=== PATIENT | male | born 1995 | race Caucasian/White ===

== ENCOUNTER 2016-05-21 14:37 | Emergency (ER) | payer MEDICAID ==
[2016-05-21 14:52] VITALS: BP 118/58; PULSE 45; RESP 16; TEMP 98.5; O2SAT 95
--- NOTE | 2016-05-21 15:03 | UCPHY ---
H & P Patient Type: Established Chief Complaint Nursing Narrative: Laceration L 4th finger from broken glass pipe yesterday. Time Seen by Provider: 05/21/16 15:00 - Personal History Current Tetanus Diphtheria and Acellular Pertussis (TDAP): Yes Tetanus Vaccine Date: within 10 years - Medical/Surgical History Hx Asthma: No Hx Chronic Respiratory Disease: No Hx Diabetes: No Hx Cardiac Disease: No Hx Renal Disease: No Hx Cirrhosis: No Hx Alcoholism: No Hx HIV/AIDS: No Hx Splenectomy or Spleen Trauma: No Other PMH: ADD/ADHD, smokes marijuana, anxiety, depression, anxiety, insomnia - Family History Significant Family History: No pertinent family hx - Social History Smoking Status: Light smoker Constitutional: Initial Vital Signs Temperature (C) 36.9 C 05/21/16 14:48 Heart Rate 45 L 05/21/16 14:48 Respiratory Rate 16 05/21/16 14:48 Blood Pressure 118/58 L 05/21/16 14:48 O2 Sat (%) 95 05/21/16 14:48 O2 Delivery Mode Room Air Allergies/Adverse Reactions: No Known Allergies Allergy (Verified 05/21/16 14:48) Home Medications: Medication Instructions Recorded NK [No Known Home Meds] 12/31/15 Medical Decision Making ED Course/Re-evaluation: CHIEF COMPLAINT: Left 4th finger laceration. HISTORY OF PRESENT ILLNESS: The patient is a 20-year-old male who presents after lacerating his left 4th finger on a glass marijuana pipe 24 hours ago. He denies numbness, weakness. He has full range of motion in the finger. The pain does not radiate. No fever or redness. REVIEW OF SYSTEMS: A 10 point review of systems was performed and is negative with the exception of the elements mentioned in the history of present illness. PHYSICAL EXAM: HR, BP, O2 Sat, RR. Temp noted General Appearance: Alert, well hydrated, appropriate, and non-toxic appearing. Head: Atraumatic without scalp tenderness or obvious injury Eyes: Pupils equal, round, reactive to light and accommodation, EOMI, no trauma , no injection. Ears: Clear bilaterally, no perforation, normal landmarks Nose: Atraumatic, no rhinorrhea, clear. Throat: There is no erythema or exudates, no lesions, normal tonsils, mucus membranes moist. Neck: Supple, 2+ carotid upstroke, nontender, no lymphadenopathy. Respiratory: No retractions, no distress, no wheezes, and no accessory muscle use. Lungs are clear to auscultation bilaterally. Cardiovascular: Regular rate and rhythm, no murmurs, rubs, or gallops. Bilateral carotid, radial, dorsalis pedis, and posterior tibial pulses intact. Good capillary refill all extremities. Gastrointestinal: Abdomen is soft, nontender, non-distended, no masses, no rebound, no guarding, no peritoneal signs. Musculoskeletal: Left 4th finger: FDS, FDP intact. Normal active ROM of all extremities, atraumatic. Neurological: Alert, appropriate, and interactive. The patient has normal DTRs and non-focal cranial nerves, motor, sensory, and cerebellar exam. Skin: 2cm superficial laceration at the tip of left 4th finger on dorsal side. No rashes, good turgor, no nodules on palpation. Past medical history:Denies. Past surgical history:Denies. Family history:Non-contributory. Social history:Smokes marijuana. DIFFERENTIAL DIAGNOSIS: The differential diagnosis for the patient includes, but is not limited to: laceration, abrasion, sprain, strain, fracture. MEDICAL DECISION MAKIN-year-old male presents with superficial laceration to tip of left 4th finger. The injury occurred 24 hours ago. Due to the risk of infection with suturing, the laceration will be left open. On exam the FDS and FDP are intact and I see no evidence of fracture or sprain, x-ray is not indicated. He will be discharged after the wound is scrubbed and cleaned. Departure - Departure Disposition: Home, Routine, Self-Care Clinical Impression: Finger laceration Qualifiers: Encounter type: initial encounter Qualifier Code: (S61.219A) Laceration without foreign body of unspecified finger without damage to nail, initial encounter Condition: Good Instructions: Finger Laceration (ED) Additional Instructions: Keep wound clean with warm, soapy water. Return for fever, redness, other signs of infection, or any other worsening of condition. Referrals: NONE *PRIMARY CARE P,. [Primary Care Provider] - As per Instructions - PQRS PQRS Measurement: Does not apply. Report Scribed for: Blu Collazo Report Scribed by: Laureano Beard Date of Report: 05/21/16 Time of Report: 15:26
== END 2016-05-21 15:37 | disposition home or self-care (01) ==
LOC: CED 14:37
DX: S61.215A Laceration without foreign body of left ring finger without damage to nail, initial encounter (principal); W26.9XXA Contact with unspecified sharp object(s), initial encounter; F12.90 Cannabis use, unspecified, uncomplicated; Z72.0 Tobacco use
CPT/HCPCS: 99213-PO; G0463-PO